=== PATIENT | female | born 1980 | race Caucasian/White ===

== ENCOUNTER 2017-08-26 17:36 | Emergency (ER) | payer OTHER ==
[~2017-08-26] VITALS: Ht 165.1 cm; Wt 70.3 kg
[~2017-08-26 17:36] MED LIST: CODGUAEL PO; CYCL10 PO; Cipro500 MG PO; DICL25ER PO; HYDACE5 PO; IBUP400 PO; IBUP600 PO; METF500 PO; Naprosyn500 MG PO; Norco 5-325 Ta1 EACH PO; PROM25 PO; RXTRAM50 PO; Robaxin500 MG PO; SULTRIDS PO
[2017-08-26] MEDS ORDERED: Mobic15 MG PO (18:14)
[2017-08-26] MEDS ORDERED: CYCL10 PO (18:14)
[2018-06-07] MEDS ORDERED: Prednisone20 MG PO (21:07)
== END 2017-08-26 18:20 | disposition home or self-care (01) ==
LOC: ER 17:36
DX: M25.512 Pain in left shoulder (principal); F17.200 Nicotine dependence, unspecified, uncomplicated
CPT/HCPCS: 96372; 99283; J1885

== ENCOUNTER 2019-11-10 19:28 | Emergency (ER) | payer SELFPAY ==
[~2019-11-10] VITALS: Ht 165.1 cm; Wt 63.5 kg
[~2019-11-10 19:28] MED LIST changes: +Mobic15 MG PO; +Prednisone20 MG PO
[2019-11-10] MEDS ORDERED: ACET500 PO (19:34)
[2019-11-10] MEDS ORDERED: Augmentin 875-1 EACH PO (19:52)
[2019-11-10] MEDS ORDERED: Norco 5-325 Ta1 EACH PO (19:52)
== END 2019-11-10 19:54 | disposition home or self-care (01) ==
LOC: ER 19:28
DX: K02.9 Dental caries, unspecified (principal)
CPT/HCPCS: 99282

== ENCOUNTER 2019-11-17 20:25 | Inpatient (IN) | payer OTHER ==
[~2019-11-17] VITALS: Ht 165.1 cm; Wt 63.5 kg
[~2019-11-17 20:25] MED LIST changes: +ACET500 PO; +Augmentin 875-1 EACH PO
[2019-11-17 21:33] LABS: BASOPHILS ABSOLUTE AUTO 0.04 K/mm3 (0.00-0.23); BASOPHILS PERCENT AUTO 0 % (0-2); EOSINOPHILS ABSOLUTE AUTO 0.24 K/mm3 (0.00-0.68); EOSINOPHILS PERCENT AUTO 3 % (0-6); Hematocrit 50.7 % (33.0-51.0); Hemoglobin 16.9 g/dL (11.5-16.0); IMMATURE GRAN ABSOLUTE AUTO 0.02 K/mm3 (0.00-0.10); IMMATURE GRAN PERCENT AUTO 0 % (0-1); LYMPHOCYTES ABSOLUTE AUTO 1.86 K/mm3 (0.84-5.20); LYMPHOCYTES PERCENT AUTO 19 % (21-46); MONOCYTES ABSOLUTE AUTO 0.67 K/mm3 (0.16-1.47); MONOCYTES PERCENT AUTO 7 % (4-13); Mean Corpuscular HGB 28.4 pg (26.0-34.0); Mean Corpuscular HGB Conc 33.3 g/dL (31.5-36.5); Mean Corpuscular Volume 85 fL (80-100); Mean Platelet Volume 10.6 fL (9.1-12.4); NEUTROPHILS ABSOLUTE AUTO 6.82 K/mm3 (1.96-9.15); NEUTROPHILS PERCENT AUTO 71 % (41-73); Platelet Count 216 K/mm3 (150-400); RDW Coefficient Variation 17.9 % (11.7-14.2); RDW Standard Deviation 51.4 fL (35.1-46.3); Red Blood Cell Count 5.96 M/mm3 (3.80-5.20); White Blood Cell Count 9.65 K/mm3 (4.00-11.30)
[2019-11-17 21:57] LABS: Alanine Aminotransfer (ALT/SGP 24 U/L (12-78); Albumin, Blood 4.2 g/dL (3.4-5.0); Albumin/Globulin Ratio 1.1 (0.8-1.8); Alk Phos 102 U/L (50-136); Anion Gap 8 mmol/L (6-16); Aspartate Aminotrans (AST/SGOT 20 U/L (12-37); Bilirubin, Total 1.1 mg/dL (0.1-1.0); Blood Urea Nitrogen 9 mg/dL (8-24); CO2, Blood 26 mmol/L (21-32); Calcium, Blood 9.2 mg/dL (8.5-10.1); Chloride, Blood 104 mmol/L (98-108); Globulin, Blood 3.9 g/dL (2.2-4.0); Glomerular Filtration Rate >60 (60-); Glucose, Blood 95 mg/dL (70-99); Potassium, Blood 3.3 mmol/L (3.5-5.5); Sodium, Blood 138 mmol/L (136-145); Total Protein, Blood 8.1 g/dL (6.4-8.2)
[2019-11-17 22:29] LABS: Source, Urine Clean Catch
[2019-11-17 22:32] LABS: Appearance, Urine Clear (Clear); Blood, Urine 2+ (Neg); Color, Urine Amber (P-Yellow); Glucose Qualitative, Urine Neg (Neg); Ketones, Urine 4+ (Neg); Leukocyte Esterase, Urine 1+ (Neg); Nitrite, Urine Neg (Neg); Protein, Urine 1+ (Neg); Specific Gravity, Urine 1.025 (1.003-1.022); Urobilinogen, Urine 4+ (Normal)
[2019-11-17 22:33] LABS: Bilirubin, Urine 1+ (Neg)
[2019-11-17 22:38] LABS: Bacteria Many /hpf; Mucus Mod (0-Heavy); Squamous Epithelial Cells Mod /hpf (Few)
--- NOTE | 2019-11-18 03:09 | NUR ---
PATIENT ARRIVED FROM THE ER @0215. SHE IS AWAKE AND COOPERATIVE. ABLE TO STND AND PIVOT TRANSFER WITHOUT ISSUE. COMPLAINS OF CRAMPING AND CHARP PAINS IN HER UPPER ABDOMEN. CURRENTLY NPO WITH LEMON GLYCERIN SWABS. TRAINED ON THE CALL LIGHT, PHONE AND CALL LIGHT WITHIN REACH.
--- NOTE | 2019-11-18 06:40 | NUR ---
PATIENT HAS SLEPT SINCE RECEIVING IV PAIN MEDICATION. PAIN HAS BEEN UNDER CONTROL. NO ACUTE CHANGES. PT IS NPO FOR POSSIBLE SURGERY THIS AM
[2019-11-18 08:36] LABS: Alanine Aminotransfer (ALT/SGP 18 U/L (12-78); Alk Phos 72 U/L (50-136); Anion Gap 5 mmol/L (6-16); Aspartate Aminotrans (AST/SGOT 14 U/L (12-37); Blood Urea Nitrogen 8 mg/dL (8-24); Bun/Creatinine Ratio 13.4 (12.0-20.0); CO2, Blood 26 mmol/L (21-32); Chloride, Blood 110 mmol/L (98-108); Globulin, Blood 3.1 g/dL (2.2-4.0); Glomerular Filtration Rate >60 (60-); Glucose, Blood 92 mg/dL (70-99); Potassium, Blood 3.5 mmol/L (3.5-5.5); Sodium, Blood 141 mmol/L (136-145)
[2019-11-18 08:37] LABS: Total Protein, Blood 6.1 g/dL (6.4-8.2)
--- NOTE | 2019-11-18 17:32 | NUR ---
SHIFT SUMMARY PT HAS DONE WELL TODAY. PAIN INTERMITENT. TOLERATING CLEAR LQS WELL. VOIDING. IVF INFUSING. AMBULATING IN HALLWAYS. PLEASANT AND COOPERATIVE.
[2019-11-19 04:50] LABS: Alanine Aminotransfer (ALT/SGP 18 U/L (12-78); Albumin, Blood 2.9 g/dL (3.4-5.0); Albumin/Globulin Ratio 1.1 (0.8-1.8); Alk Phos 64 U/L (50-136); Anion Gap 6 mmol/L (6-16); Aspartate Aminotrans (AST/SGOT 15 U/L (12-37); Bilirubin, Total 0.9 mg/dL (0.1-1.0); Blood Urea Nitrogen 3 mg/dL (8-24); Bun/Creatinine Ratio 5.9 (12.0-20.0); CO2, Blood 24 mmol/L (21-32); Calcium, Blood 8.2 mg/dL (8.5-10.1); Chloride, Blood 108 mmol/L (98-108); Creatinine, Blood 0.51 mg/dL (0.40-1.00); Globulin, Blood 2.7 g/dL (2.2-4.0); Glomerular Filtration Rate >60 (60-); Glucose, Blood 101 mg/dL (70-99); Potassium, Blood 3.8 mmol/L (3.5-5.5); Sodium, Blood 138 mmol/L (136-145); Total Protein, Blood 5.6 g/dL (6.4-8.2)
--- NOTE | 2019-11-19 06:03 | NUR ---
SHIFT SUMMARY: JAN IS A&O X4. SHE IS HOPEFUL FOR A LAP LYNDA TODAY, HER LIPASE IS 519 THIS MORNING, DOWN FROM 665. SHE IS INDEPENDENT IN THE ROOM. SHE WAS TOLERATING PO INTAKE WELL UNTIL MIDNIGHT WHEN SHE WAS MADE NPO. LR INFUSING. SHE REPORTS 0.5 MG OF DILAUDID AND NORCO EFFECTIVE FOR CONTROLLING HER PAIN. SHE DENIES ANY DIFFICULTIES VOIDING. SHE USES THE CALL LIGHT APPROPRIATELY. SHE IS LYING IN BED WITH HER CALL LIGHT IN REACH. WILL REPORT TO DAY TIFFANY LANDRY.
--- NOTE | 2019-11-19 07:35 | NUR ---
dr fair by to see pt plan for or this am npo no nausea at this time min pain upper abd r/l oob to void
--- NOTE | 2019-11-19 08:44 | NUR ---
PT READY IN ROOM FOR SURGERY. AGREES WITH PLANNED SURGERY.
--- NOTE | 2019-11-19 08:55 | NUR ---
pt req pain meds 0.5 mg dilaudid given pt also stated it radiates to her back po norco on hold for npo or by to see pt to get pt ready for or
--- NOTE | 2019-11-19 09:12 | NUR ---
kimberly oglesby on [facility] awaiting
--- NOTE | 2019-11-19 09:33 | NUR ---
pt transported to or
--- NOTE | 2019-11-19 12:36 | NUR ---
PT OUT TO ROOM FROM PACU OOB TO BED PAIN MEDS GIVEN NO NAUSEA PAIN 5/10 WILL CHANGE DRESSING TO UMBILLICUS SAT
--- NOTE | 2019-11-19 13:18 | NUR ---
NEW DRESSING PLACED PT STATED HER THROAT IS SORE BUT OTHERWISE PAIN IS 2-3/10 AND SHE WANTS TO GO SOON POSSIBLE
[2019-11-19] MEDS ORDERED: Norco 5-325 Ta1 EACH PO (13:29)
--- NOTE | 2019-11-19 14:40 | NUR ---
PT IZZY IN HALLWAY WITH STAFF MELLO GEORGE
--- NOTE | 2019-11-19 15:16 | NUR ---
DR PACK CALLED OK TO DISCHARGE HOME
--- NOTE | 2019-11-19 15:43 | NUR ---
DISCHARGE INSTRUCTIONS REVIEWED RX GIVEN AMB AGAIN IN HALLWAY WAITING FOR A RIDE
== END 2019-11-19 15:50 | disposition home or self-care (01) | DRG 418 ==
LOC: ER 20:25 → SURS 11-18 01:20
PROVIDERS: Physician Assistant; ADMIT Surgery
PROC: BF13YZZ Fluoroscopy of Gallbladder and Bile Ducts using Other Contrast (ICD-10-PCS; 2019-11-19)
PROC: 0FT44ZZ Resection of Gallbladder, Percutaneous Endoscopic Approach (ICD-10-PCS; principal; 2019-11-19 09:30)
DX: K85.10 Biliary acute pancreatitis without necrosis or infection (principal); K80.10 Calculus of gallbladder with chronic cholecystitis without obstruction; F17.210 Nicotine dependence, cigarettes, uncomplicated
CPT/HCPCS: 36415; 74177; 74300; 76705; 80053; 81001; 81025; 83690; 85025; 87086; 96361-59; 96374-59; 96375-59; 99285-25; A9270-GY; J0330; J0694; J1170; J1885; J2250; J2405; J2710; J3010; J7030; J7120; Q9967

== ENCOUNTER 2020-01-18 10:50 | Emergency (ER) | payer OTHER ==
[~2020-01-18] VITALS: Ht 165.1 cm; Wt 61.2 kg
== END 2020-01-18 12:20 | disposition home or self-care (01) ==
LOC: ER 10:50
DX: S63.502A Unspecified sprain of left wrist, initial encounter (principal); F17.210 Nicotine dependence, cigarettes, uncomplicated; W19.XXXA Unspecified fall, initial encounter
CPT/HCPCS: 73110; 73130; 99283-25

== ENCOUNTER 2020-12-15 14:42 | Emergency (ER) | payer OTHER ==
[~2020-12-15] VITALS: Ht 165.1 cm; Wt 70.3 kg
[2020-12-15] MEDS ORDERED: Zovirax800 MG PO (15:08)
[2020-12-15] MEDS ORDERED: HYDR1TAB94 PO (15:08)
[2020-12-15] MEDS ORDERED: LIDO700A20 TOP (15:08)
== END 2020-12-15 15:32 | disposition home or self-care (01) ==
LOC: ER 14:42
DX: B02.9 Zoster without complications (principal); F17.210 Nicotine dependence, cigarettes, uncomplicated; Z88.5 Allergy status to narcotic agent; Z79.899 Other long term (current) drug therapy
CPT/HCPCS: 99282

== ENCOUNTER 2022-03-12 10:45 | Emergency (ER) | payer OTHER ==
[~2022-03-12] VITALS: Ht 165.1 cm; Wt 65.8 kg
[~2022-03-12 10:45] MED LIST changes: +HYDR1TAB94 PO; +LIDO700A20 TOP; +Zovirax800 MG PO
[2022-03-12] MEDS ORDERED: TRAM50 PO (11:14)
[2022-03-12] MEDS ORDERED: Cleocin HCl300 MG PO (11:14)
[2022-03-12] MEDS ORDERED: IBU800 MG PO (11:14)
== END 2022-03-12 11:38 | disposition home or self-care (01) ==
LOC: ER 10:45
DX: K02.9 Dental caries, unspecified (principal); F17.210 Nicotine dependence, cigarettes, uncomplicated
CPT/HCPCS: A9270

== ENCOUNTER 2022-09-14 16:13 | Emergency (ER) | payer OTHER ==
[~2022-09-14] VITALS: Ht 165.1 cm; Wt 65.8 kg
[~2022-09-14 16:13] MED LIST changes: +Cleocin HCl300 MG PO; +IBU800 MG PO; +TRAM50 PO
[2022-09-14] MEDS ORDERED: AMOCLA875 PO ×2 (16:36→17:02)
[2022-09-14] MEDS ORDERED: ONDA4ODT MM ×2 (16:36→17:02)
[2022-09-14] MEDS ORDERED: Percocet 5-3251 EACH PO ×2 (16:36→17:02)
== END 2022-09-14 16:37 | disposition home or self-care (01) ==
LOC: ER 16:13
DX: K02.9 Dental caries, unspecified (principal); K04.7 Periapical abscess without sinus; F17.210 Nicotine dependence, cigarettes, uncomplicated; Z79.899 Other long term (current) drug therapy
CPT/HCPCS: 99282

== ENCOUNTER → 2022-09-27 | Outpatient (CLI) | payer OTHER ==
[~2022-09-27] MED LIST changes: +AMOCLA875 PO; +ONDA4ODT MM; +Percocet 5-3251 EACH PO
[2022-09-27 12:48] LABS: BASOPHILS ABSOLUTE AUTO 0.06 K/mm3 (0.00-0.23); BASOPHILS PERCENT AUTO 1 % (0-2); EOSINOPHILS ABSOLUTE AUTO 0.28 K/mm3 (0.00-0.68); EOSINOPHILS PERCENT AUTO 3 % (0-6); Hematocrit 43.6 % (33.0-51.0); Hemoglobin 14.7 g/dL (11.5-16.0); IMMATURE GRAN ABSOLUTE AUTO 0.01 K/mm3 (0.00-0.10); IMMATURE GRAN PERCENT AUTO 0 % (0-1); LYMPHOCYTES ABSOLUTE AUTO 1.71 K/mm3 (0.84-5.20); LYMPHOCYTES PERCENT AUTO 18 % (21-46); MONOCYTES ABSOLUTE AUTO 0.55 K/mm3 (0.16-1.47); MONOCYTES PERCENT AUTO 6 % (4-13); Mean Corpuscular HGB Conc 33.7 g/dL (31.5-36.5); Mean Corpuscular Volume 86 fL (80-100); Mean Platelet Volume 11.4 fL (9.1-12.4); NEUTROPHILS ABSOLUTE AUTO 6.89 K/mm3 (1.96-9.15); NEUTROPHILS PERCENT AUTO 73 % (41-73); Platelet Count 211 K/mm3 (150-400); RDW Coefficient Variation 14.5 % (11.7-14.2); RDW Standard Deviation 45.3 fL (35.1-46.3); Red Blood Cell Count 5.07 M/mm3 (3.80-5.20)
[2022-09-27 13:01] LABS: Alanine Aminotransfer (ALT/SGP 30 U/L (12-78); Albumin, Blood 4.1 g/dL (3.4-5.0); Albumin/Globulin Ratio 1.1 (0.8-1.8); Alk Phos 72 U/L (50-136); Anion Gap 4 mmol/L (6-16); Aspartate Aminotrans (AST/SGOT 20 U/L (12-37); Bilirubin, Total 0.5 mg/dL (0.1-1.0); Blood Urea Nitrogen 7 mg/dL (8-24); CHOL/HDL RATIO 3.4; CO2, Blood 26 mmol/L (21-32); Calcium, Blood 9.2 mg/dL (8.5-10.1); Chloride, Blood 108 mmol/L (98-108); Cholesterol 146 mg/dL (50-200); Globulin, Blood 3.6 g/dL (2.2-4.0); Glucose, Blood 124 mg/dL (70-99); HDL Cholesterol 43 mg/dL (>39); LDL/HDL RATIO 1.7; Low Density Lipoprotein Chol 73 mg/dL (0-110); Potassium, Blood 4.8 mmol/L (3.5-5.5); Sodium, Blood 138 mmol/L (136-145); Total Protein, Blood 7.7 g/dL (6.4-8.2); Triglycerides 150 mg/dL (30-160); Very Low Density Lipoprot Chol 30 mg/dL (6-32)
[2022-09-27 13:04] LABS: Bun/Creatinine Ratio 9.5 (12.0-20.0); Creatinine, Blood 0.74 mg/dL (0.40-1.00); Glomerular Filtration Rate 104 (60-)
== END | disposition home or self-care (01) ==
LOC: LAB 08:52 → LAB SHORT 08:52
PROVIDERS: Nurse Practitioner Family
DX: Z13.220 Encounter for screening for lipoid disorders (principal); Z13.6 Encounter for screening for cardiovascular disorders; E11.65 Type 2 diabetes mellitus with hyperglycemia
CPT/HCPCS: 36415; 80053; 80061; 82043; 83036; 85025

== ENCOUNTER → 2022-11-06 | Outpatient (CLI) | payer OTHER ==
[2022-11-07 15:11] LABS: HPV 16 Negative (Negative); HPV 18 Negative (Negative); HPV OTHER HR TYPES Negative (Negative)
== END | disposition home or self-care (01) ==
LOC: LAB 10:37 → LAB SHORT 10:37
PROVIDERS: Obstetrics & Gynecology
DX: Z01.419 Encounter for gynecological examination (general) (routine) without abnormal findings (principal)
CPT/HCPCS: 87624; G0145

== ENCOUNTER 2022-11-19 11:21 | Emergency (ER) | payer OTHER ==
[~2022-11-19] VITALS: Ht 165.1 cm; Wt 70.3 kg
[2022-11-19 11:39] VITALS: BP 119/96
[2022-11-19] MEDS ORDERED: AMOX500 PO (11:43)
[2022-11-19] MEDS ORDERED: ONDA4ODT MM (11:43)
[2022-11-19] MEDS ORDERED: Norco 5-325 Ta1 EACH PO (11:43)
== END 2022-11-19 11:44 | disposition home or self-care (01) ==
LOC: ER 11:21
DX: K04.7 Periapical abscess without sinus (principal); F17.210 Nicotine dependence, cigarettes, uncomplicated
CPT/HCPCS: 99282